=== PATIENT | female | born 1970 | race Caucasian/White ===

== ENCOUNTER 2019-05-17 00:39 | Emergency (ER) | payer BC ==
[~2019-05-17] VITALS: Ht 167.6 cm; Wt 68.0 kg
[2019-05-17 01:03] VITALS: BP 137/82
== END 2019-05-17 01:25 | disposition home or self-care (01) ==
LOC: ER 00:41
DX: R05 Cough (principal); R06.02 Shortness of breath; Z87.01 Personal history of pneumonia (recurrent); Z87.442 Personal history of urinary calculi; Z98.890 Other specified postprocedural states